=== PATIENT | female | born 1940 ===

== ENCOUNTER 2025-04-12 10:01 | Outpatient (AMB) | payer MEDICARE, SELFPAY ==
--- NOTE | 2025-04-12 10:09 | A.OFFVIS_ITS ---
Vital Signs 04/12/25 10:10 Height 5 ft 4 in Weight 91 lb BMI 15.6 BP 108/70 Blood Pressure Location Lt brachial Position Sitting Pulse 59 Pulse Source Pulse Oximeter Pulse Oximetry (%) 93 Oxygen Delivery Method Room Air Intake Visit Reasons: COPD/Bronchiectasis Intake Note: pt is here as a new patient, she states she gets hoarse after eating, has a esophagus issue going on. 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 Allergies warfarin [From Coumadin] Adverse Reaction (Mild, Verified 04/12/25 13:21) does not feel well on this medication Medication List - Last Reconciled 04/12/25 by Enma Munguia MD albuterol sulfate 90 mcg/actuation 2 puffs inhalation .prn atorvastatin (Lipitor) 20 mg PO BEDTIME calcium carbonate 500 mg PO BID carbidopa-levodopa 25-100 mg (Sinemet) 1 tab PO TID fluticasone propionate 50 mcg/actuation (Flonase Allergy Relief) 1 spray intranasal BID guaifenesin 200 mg PO Q4H PRN levothyroxine 100 mcg PO DAILY loratadine (Claritin) 10 mg PO DAILY metoprolol succinate ER 12.5 mg PO DAILY mirtazapine 7.5 mg PO BEDTIME pantoprazole 20 mg PO DAILY propafenone 150 mg PO BID Do you need a note to return to daycare/school/sports/work: No HPI HPI COPD/Bronchiectasis: Details: This 84 years old female, very pleasant, comes to the office today accompanied by her daughter, Current pulmonary evaluation and ongoing management. Previously she has been going to [facility] pulmonology group, She has primary care physician Dr. Hancock in [place]. This patient is of a thin build, , chronically under nourished , frail looking, who came in the wheelchair, . At home gets around with the walker Has history of dysphagia for the past many years, to the point that now she has difficulty in swallowing some solid foods, She also gets some choking. Episodes with liquids She tolerates semi solid type of food but only in small amounts. Still gets intermittent bouts of cough, as if she has hard time to expectorates. She is a good candidate for pulmonary aspirations, but denies having had any acute aspiration pneumonia requiring her to be hospitalized. The difficulty in swallowing is gradually getting worse. Her PCP and previous pulmonary providers have discussed with her about possible feeding tube, but she has declined. Mentally she stays very alert. Locomotion is impaired and it is partly because she has parkinsonism, as evidenced from the carbidopa-levodopa agent( Sinemet 25-100 ) that she takes b.i.d.. This patient does not know if she ever had pulmonary function test, but she probably does have some degree of chronic obstructive pulmonary disease. She has albuterol inhaler which she does not use much She has been prescribed nebulizer and advised to use 3% saline in the nebulizer Q 4-6 hours p.r.n. if she has an urge to clear mucus. She has tried to add albuterol to this but she claims that she it causes ta chycardia so she is not using it. Currently she does use guaifenesin 200 mg q.4 hours p.r.n. and also Claritin 10 mg once a day p.r.n. She was prescribed act Acapella vave for respiratory exercises, but she is not using it regularly. She had been on Symbicort 160-4.5 b.i.d. which is now changed to Advair, but she is not using it regularly. Main issue is dysphagia, poor nutrition, and fraility She has seen a parachute repairer in the past, her previous workup with barium swallow has shown difficulty in swallowing, with holding of the food in hypopharynx. And also she is known to have Schatzki ring . She has had dilatation at least at 1 time about a year ago. Has not gone back for follow-up. During our examination here in the office it was noted that she has a significant degree of Pectus Excavatum . She has not been told about this chest deformity before [facility] Medical History (Updated 04/12/25 @ 16:08 by Enma Munguia MD) Malnutrition Dysphagia Bronchiectasis COPD (chronic obstructive pulmonary disease) Restrictive lung disease Pectus excavatum Social History Patient Tobacco Use Status: Former Tobacco user Review of Systems Const All systems reviewed & are unremarkable except as noted in HPI and below Eyes Reports no additional complaints ENT Reports no additional complaints and Reports dysphagia (DYSPHAGIA, and possible micro aspirations.) Card Denies chest pain, Denies irregular heart rhythm and Reports dyspnea on exertion Resp Reports as per HPI and Reports dyspnea on exertion GI Reports dysphagia (DYSPHAGIA, and possible micro aspirations.) Reports no additional complaints Musc Reports abnormal gait (Has parkinsonism, and impaired gait.) and Reports muscle weakness Skin/Breast Reports system reviewed and no additional complaints, except as documented Neuro Reports abnormal gait (Has parkinsonism, and impaired gait.) Psych Reports no additional complaints Physical Exam Vital Signs: Last Vital Signs Pulse 59 04/12/25 10:10 BP 108/70 04/12/25 10:10 Pulse Ox 93 04/12/25 10:10 Oxygen Delivery Method Room Air 04/12/25 10:10 BMI result Body Mass Index 15.6 Patient is of a very thin build, chronically sick-looking, frail. Const General: comfortable, no acute distress, alert and awake Orientation/consciousness: patient oriented x3 HEENT Head: Yes normal to inspection General nose exam: No nasal polyps present and No nasal discharge present Face and sinus: Yes sinuses nontender Mouth: oropharynx normal Throat: Yes posterior oropharynx normal Eyes General: appearance normal, both eyes and all related structures Neck Neck: Yes normal visual inspection, Yes no lymphadenopathy, Yes trachea midline and Yes no JVD Thyroid: Thyroid normal Chest Chest palpation & inspection: abnormal inspection of the chest (Patient has a is severe degree of pectus excavatum,) and no tenderness Resp Other: This patient has severe chest deformity in the form of PECTUS EXCAVATUM Percussion note is resonant, breath sounds are diminished with prolonged expiratory phase. Has inspiratory crackles over the right. upper lobe anteriorly Has a few inspiratory wheezes in the upper part of the chest on both sides. Cardio Palpation: normal PMI Rate: regular rate Rhythm: regular rhythm Heart sounds: no gallops and no murmurs GI Palpation (GI): Soft to palpation, nontender, No hepatosplenomegaly present and no masses Auscultation: normal bowel sounds General: Yes no CVA tenderness Back/Spine/Pelvis Back: no CVA tenderness Thoracic/Lumbar Spine: thoracic and lumbar spine normal to inspection Skin General skin exam: no rashes or lesions noted Neuro General: patient oriented x3, No gait normal (Mild spasticity of the legs, with general weakness, patient in wheelchair) and no focal motor deficits Cranial nerves: Yes CN's II-XII intact bilaterally Extrem General: Yes normal to inspection, Yes no clubbing, cyanosis or edema and Yes no calf tenderness Psych Speech and movement: Normal speech and movement present Assessment & Plan Assessment & Plan (1) Pectus excavatum: Comment: This patient has very severe anterior chest deformity due to pectus excavatum. She has not been told about this before. When I pointed out to her and her daughter that he has this significant deformity which is causing restrictive lung disorder, they both expressed that they were not aware of this issue. I think her lung problem is definitely contributed by this deformity It seems to be congenital. Her shortness of breath is definitely contributed by this chest deformity. Code(s): Q67.6 - Pectus excavatum Category: Medical Plan: Mostly it was the Education of the patient and her daughter about this chest deformity. No specific treatment is going to be helpful at this stage. (2) Restrictive lung disease: Comment: We do not have the results of her previous pulmonary function test. But looking at the chest deformity, I a.m. sure that she has significant restrictive pulmonary disorder. Code(s): J98.4 - Other disorders of lung Category: Medical Plan: Advise that if she can she should try to do deep breathing exercises 3 times a day. (3) COPD (chronic obstructive pulmonary disease): Comment: Along with the restrictive component she has chronic obstructive airway disorder, which is probably mild. Code(s): J44.9 - Chronic obstructive pulmonary disease, unspecified Category: Medical Plan: She is advised to use albuterol HFA 2 puffs Q 6 hours p.r.n. if she has increased dyspnea or cough Also may use guaifenesin 200 mg q.4 hours p.r.n. for cough. (4) Bronchiectasis: Comment: She probably has had recurrent micro aspirations due to her dysphagia. The CT scan findings indicate that she has chronic bronchitis in the upper lobes and bronchiectasis in the right upper lobe. She is probably prone to have aspiration pneumonitis resulting in bronchial aggressive. Code(s): J47.9 - Bronchiectasis, uncomplicated Category: Medical Plan: Has to use all possible precautions to avoid pulmonary aspiration. For bronchiectases she should use hypertonic saline (3 % ) to male in the nebulizer at least twice a day and can use more often as needed. Guaifenesin 200 mg p.o. Q 4-6 hours p.r.n.. Continue to use Acapella valve 3 times a day, for respiratory exercises and mucus clearance. (5) Dysphagia: Comment: Patient has chronic difficulty in swallowing, she is not able to keep up with her nutrition. Her dysphagia is probably due to parkinsonism/ muscular discoordination. Previous barium swallow and other tests have shown that she has Schatzki ring . History of dilatation at lease once, after that she has had no regular follow- up. Code(s): R13.10 - Dysphagia, unspecified Category: Medical Plan: Advised that she should strict to pureed diet. Try to avoid aspiration. She is encouraged to follow-up with her parachute repairer regularly, and she may need intermittent upper endoscopy with dilatation. Of the lower end of the supplement We also discussed about Feeding tube She is definitely not prepared for that at this time (6) Malnutrition: Comment: Due to ongoing dysphagia and poor oral intake patient is cachectic, with thin build , and frail. Code(s): E46 - Unspecified protein-calorie malnutrition Category: Medical Plan: She he is encouraged to increase her intake of solid liquids or pureed type of time. Due to increased weight loss/malnutrition, she is encouraged to think seriously about having a feeding tube placed. I encouraged her to follow-up with the primary care physician closely and discuss about the feeding issues. Coding Level of Care Code New Pt Level 4 (72896) Diagnoses Pectus excavatum Q67.6 Restrictive lung disease J98.4 COPD (chronic obstructive pulmonary disease) J44.9 Bronchiectasis J47.9 Dysphagia R13.10 Malnutrition E46
[2025-04-12 10:10] VITALS: BP 108/70; PULSE 59; O2SAT 93; BMI 15.6
--- OUTSIDE RECORDS SUMMARY | 2025-04-12 11:14 | XMS_ITS | Encounter Summary ---
Author Organization [facility] Address [address] [place] [address] Care Team Providers Care Animal Sitter Name Role Phone Cheryl Champion MD Primary Care Provider Encounter Details Date Type Department Care Team (Late st Contact Info) Description 11/14/2024 Lab Requisition [facility] - Main Lab [address] [facility] [place] [address] Gary Tomlin MD [address] [place] [id number] Encounter for other general examination Social History Tobacco Use Types Packs/Day Years Used Date Smoking Tobacco: Former Smokeless Tobacco: Never Alcohol Use Standard Drinks/Week Comments Not Currently 0 (1 standard drink = 0.6 oz pur e alcohol) Comments Unknown Sex and Gender Information Value Date Recorded Sex Assigned at Not on file Legal Sex Female 3:59 PM EST Gender Identity Not on file Sexual Orientation Not on file documented as of this encounter Plan of Treatment Not on file documented as of this encounter Procedures Procedure Name Priority Date/Time Associated Diagnosis Comments COMPLETE BLOOD COUNT Routine 11/14/2024 4:51 AM EST Encounter for other general examination COMPREHENSIVE METABOLIC PANEL Routine 11/14/2024 4:51 AM EST Encounter for other general examination documented in this encounter Results * (ABNORMAL) Complete blood count (11/14/2024 4:51 AM EST) WBC 9.5 4.8 - 10.8 K/mcL LAB HEMETOLOGY METHOD 11/14/2024 11:41 AM [facility] RBC 4.50 3.80 - 4.80 M/mcL LAB HEMETOLOGY METHOD 11/14/2024 11:41 AM [facility] Hemoglobin 13.3 11.5 - 16.0 g/dL LAB HEMETOLOGY METHOD 11/14/2024 11:41 AM [facility] Hematocrit 41.5 35.0 - 47.0 % LAB HEMETOLOGY METHOD 11/14/2024 11:41 AM [facility] MCV 92.2 79.0 - 98.0 FL LAB HEMETOLOGY METHOD 11/14/2024 11:41 AM [facility] MCH 29.6 27.0 - 32.0 pcg LAB HEMETOLOGY METHOD 11/14/2024 11:41 AM [facility] MCHC 32.0 32.0 - 37.0 g/dL LAB HEMETOLOGY METHOD 11/14/2024 11:41 AM [facility] RDW 12.8 11.0 - 15.0 % LAB HEMETOLOGY METHOD 11/14/2024 11:41 AM [facility] Platelets 325 130 - 400 K/mcL LAB HEMETOLOGY METHOD 11/14/2024 11:41 AM [facility] MPV 11.9(H) 7.0 - 11.0 FL LAB HEMETOLOGY METHOD 11/14/2024 11:41 AM [facility] NRBC 0.0 <1.0 % LAB HEMETOLOGY METHOD 11/14/2024 11:41 AM [facility] NRBC Absolute 0.00 <0.10 K/mcL LAB HEMETOLOGY METHOD 11/14/2024 11:41 AM [facility] Blood Venous blood specimen / Unknown 11/14/2024 4:51 AM EST 11/14/2024 10:26 AM EST us Gary Tomlin MD LAB BLOOD ORDERABLES Final Res ult [facility] [address] [place] [address], [place] [phone] * (ABNORMAL) Comprehensive metabolic panel (11/14/2024 4:51 AM EST) Sodium 134 133 - 145 mmol/L LAB CHEMISTRY METHOD 11/14/2024 12:29 PM [facility] Potassium 4.5 3.5 - 5.5 mmol/L LAB CHEMISTRY METHOD 11/14/2024 12:29 PM [facility] Chloride 96 96 - 110 mmol/L LAB CHEMISTRY METHOD 11/14/2024 12:29 PM [facility] CO2 35(H) 21 - 32 mmol/L LAB CHEMISTRY METHOD 11/14/2024 12:29 PM [facility] Anion Gap 3 3 - 11 LAB CHEMISTRY METHOD 11/14/2024 12:29 PM [facility] Glucose 79 70 - 100 mg/dL LAB CHEMISTRY METHOD 11/14/2024 12:29 PM [facility] BUN 16 5 - 25 mg/dL LAB CHEMISTRY METHOD 11/14/2024 12:29 PM [facility] Creatinine 0.36(L) 0.50 - 1.10 mg/dL LAB CHEMISTRY METHOD 11/14/2024 12:29 PM [facility] eGFR 99 >=60 mL/min/1. 73m2 LAB CHEMISTRY METHOD 11/14/2024 12:29 PM [facility] Comment:Calculation based on the??Chronic Kidney Disease Epidemiology Collaboration (CKD-EPI) equation refit??without adjustment for race. BUN/Creatinine Ratio 44.4 LAB CHEMISTRY METHOD 11/14/2024 12:29 PM [facility] Calcium 8.6 8.5 - 10.5 mg/dL LAB CHEMISTRY METHOD 11/14/2024 12:29 PM [facility] AST (SGOT) 19 10 - 42 unit/L LAB CHEMISTRY METHOD 11/14/2024 12:29 PM [facility] ALT (SGPT) 25 10 - 60 unit/L LAB CHEMISTRY METHOD 11/14/2024 12:29 PM [facility] Alkaline Phosphatase 84 42 - 121 unit/L LAB CHEMISTRY METHOD 11/14/2024 12:29 PM [facility] Total Protein 5.5(L) 6.0 - 8.0 g/dL LAB CHEMISTRY METHOD 11/14/2024 12:29 PM [facility] Albumin 2.6(L) 3.2 - 5.0 g/dL LAB CHEMISTRY METHOD 11/14/2024 12:29 PM [facility] Total Bilirubin 1.6(H) 0.0 - 1.4 mg/dL LAB CHEMISTRY METHOD 11/14/2024 12:29 PM [facility] Blood Venous blood specimen / Unknown Venipuncture / Unknown 11/14/2024 4:51 AM EST 11/14/2024 10:26 AM EST us Gary Tomlin MD LAB BLOOD ORDERABLES Final Res ult [facility] [address] [place] [address], [place] [phone] documented in this encounter Visit Diagnoses Diagnosis Encounter for other general examination documented in this encounter Care Teams Animal Sitter Relationship Specialty Start Date End Date Cheryl Champion MD [address] [place] [address] PCP - General Internal Medicine 12/02/24 documented as of this encounter
== END 2025-04-12 10:50 | disposition home or self-care (01) ==
LOC: HO.HPS 10:02
PROVIDERS: PCP Internal Medicine; Referring Provider Internal Medicine; Visit Provider Internal Medicine
DX: Q67.6 Pectus excavatum (principal); J98.4 Other disorders of lung; J44.9 Chronic obstructive pulmonary disease, unspecified; J47.9 Bronchiectasis, uncomplicated; R13.10 Dysphagia, unspecified; E46 Unspecified protein-calorie malnutrition
CPT/HCPCS: 99204

== ENCOUNTER → 2025-04-12 10:01 | Outpatient (BNVA) | payer MEDICARE, SELFPAY | PROVIDERS: PCP Internal Medicine; Referring Provider Internal Medicine; Visit Provider Internal Medicine | DX: J44.9 Chronic obstructive pulmonary disease, unspecified (principal); J98.4 Other disorders of lung; J47.9 Bronchiectasis, uncomplicated; R13.10 Dysphagia, unspecified; E46 Unspecified protein-calorie malnutrition; Q67.6 Pectus excavatum | CPT/HCPCS: 99202 ==

== ENCOUNTER 2025-06-14 10:36 | Outpatient (AMB) | payer MEDICARE, SELFPAY ==
--- NOTE | 2025-06-14 11:10 | A.OFFVIS_ITS ---
Vital Signs 06/14/25 11:10 06/14/25 11:11 Height 5 ft 4 in 5 ft 4 in Weight 93 lb 11.143 oz BMI 16.1 BP 110/52 L Blood Pressure Location Lt brachial Position Sitting Pulse 55 Pulse Source Pulse Oximeter Pulse Oximetry (%) 90 L Oxygen Delivery Method Room Air Intake Visit Reasons: COPD/Bronchiectasis Intake Note: pt is here for follow up and states some coughing with mucous in the throat. Art Department Head Required: No Allergies warfarin (From Coumadin) Adverse Reaction (Mild, Verified 06/14/25 11:29) does not feel well on this medication Medication List - Last Reconciled 06/14/25 by Enma Munguia MD albuterol sulfate 90 mcg/actuation 2 puffs inhalation .prn atorvastatin (Lipitor) 20 mg PO BEDTIME carbidopa-levodopa 25-100 mg (Sinemet) 1 tab PO TID fluticasone propionate 50 mcg/actuation (Flonase Allergy Relief) 1 spray intranasal BID guaifenesin 200 mg PO Q4H PRN levothyroxine 100 mcg PO DAILY loratadine (Claritin) 10 mg PO DAILY lorazepam mg PO metoprolol succinate ER 12.5 mg PO DAILY mirtazapine 7.5 mg PO BEDTIME pantoprazole 20 mg PO DAILY propafenone 150 mg PO BID Do you need a note to return to daycare/school/sports/work: No HPI HPI COPD/Bronchiectasis: Details: This 84 years old very pleasant female, is a case of mild parkinsonism, which may be causing some discoordination of the pharyngeal muscles, and puts her at risk of dysphagia. However she has had no episodes of difficulty in swallowing. She is a case of severe pectus excavatum, and has some bronchiectasis in the lower lobes, that is with tendency to retain secretions. Since her last visit after full explanation of the abnormalities, she has coped with this situation much more easily. She does need to use the nebulizer with saline solution off and on, but does not like albuterol solution. She has had no persist and bouts of cough, or wheezing. [facility] Medical History Malnutrition Dysphagia Bronchiectasis COPD (chronic obstructive pulmonary disease) Restrictive lung disease Pectus excavatum Social History Patient Tobacco Use Status: Former Tobacco user Review of Systems Const All systems reviewed & are unremarkable except as noted in HPI and below Eyes Reports no additional complaints ENT Reports no additional complaints and Reports dysphagia (DYSPHAGIA, and possible micro aspirations.) Card Denies chest pain, Denies irregular heart rhythm and Reports dyspnea on exertion Resp Reports as per HPI and Reports dyspnea on exertion GI Reports dysphagia (DYSPHAGIA, and possible micro aspirations.) Reports no additional complaints Musc Reports abnormal gait (Has parkinsonism, and impaired gait.) and Reports muscle weakness Skin/Breast Reports system reviewed and no additional complaints, except as documented Neuro Reports abnormal gait (Has parkinsonism, and impaired gait.) Psych Reports no additional complaints Physical Exam Vital Signs: Last Vital Signs Pulse 55 06/14/25 11:11 BP 110/52 L 06/14/25 11:11 Pulse Ox 90 L 06/14/25 11:11 Oxygen Delivery Method Room Air 06/14/25 11:11 BMI result Body Mass Index 16.1 Patient is of a very thin build, chronically sick-looking, frail. Const General: comfortable, no acute distress, alert and awake Orientation/consciousness: patient oriented x3 HEENT Head: Yes normal to inspection General nose exam: No nasal polyps present and No nasal discharge present Face and sinus: Yes sinuses nontender Mouth: oropharynx normal Throat: Yes posterior oropharynx normal Eyes General: appearance normal, both eyes and all related structures Neck Neck: Yes normal visual inspection, Yes no lymphadenopathy, Yes trachea midline and Yes no JVD Thyroid: Thyroid normal Chest Chest palpation & inspection: abnormal inspection of the chest (Patient has a is severe degree of pectus excavatum,) and no tenderness Resp Other: This patient has severe chest deformity in the form of PECTUS EXCAVATUM Percussion note is resonant, breath sounds are diminished with prolonged expiratory phase. Has no wheezes or crepitations. Cardio Palpation: normal PMI Rate: regular rate Rhythm: regular rhythm Heart sounds: no gallops and no murmurs GI Palpation (GI): Soft to palpation, nontender, No hepatosplenomegaly present and no masses Auscultation: normal bowel sounds General: Yes no CVA tenderness Back/Spine/Pelvis Back: no CVA tenderness Thoracic/Lumbar Spine: thoracic and lumbar spine normal to inspection Skin General skin exam: no rashes or lesions noted Neuro General: patient oriented x3, No gait normal (Mild spasticity of the legs, with general weakness, patient in wheelchair) and no focal motor deficits Cranial nerves: Yes CN's II-XII intact bilaterally Extrem General: Yes normal to inspection, Yes no clubbing, cyanosis or edema and Yes no calf tenderness Psych Speech and movement: Normal speech and movement present Assessment & Plan Assessment & Plan (1) COPD (chronic obstructive pulmonary disease): Comment: Along with the restrictive component she has chronic obstructive airway disorder, which is probably mild. Does not need to use any bronchodilator inhalers. She does have albuterol solution at home but she does not tolerate it in the nebulizer. Code(s): J44.9 - Chronic obstructive pulmonary disease, unspecified Category: Medical Plan: Again advise that her COPD if at all is very mild and it is okay not to use the albuterol. May use guaifenesin 200 mg p.o. q.4 hours p.r.n. for any sense of mucus (2) Bronchiectasis: Comment: She probably has had recurrent micro aspirations due to her dysphagia. The CT scan findings indicate that she has chronic bronchitis in the upper lobes and bronchiectasis in the right upper lobe. She is probably prone to have aspiration pneumonitis resulting in bronchial aggressive. Code(s): J47.9 - Bronchiectasis, uncomplicated Category: Medical Plan: Patient just re-educated about this issue (3) Restrictive lung disease: Comment: We do not have the results of her previous pulmonary function test. But looking at the chest deformity, I a.m. sure that she has significant restrictive pulmonary disorder. Code(s): J98.4 - Other disorders of lung Category: Medical Plan: Patient is educated about this and advised to try doing deep breathing exercises as much as she can (4) Pectus excavatum: Comment: This patient has very severe anterior chest deformity due to pectus excavatum. She has not been told about this before. When I pointed out to her and her daughter that she has this significant deformity which is causing restrictive lung disorder, they both expressed that they were not aware of this issue. I think her lung problem is definitely contributed by this deformity It seems to be congenital. Her shortness of breath is definitely contributed by this chest deformity. Code(s): Q67.6 - Pectus excavatum Category: Medical Plan: Patient has now learned to live with that and is not bothered by increased shortness of breath (5) Dysphagia: Comment: Patient has chronic difficulty in swallowing, she is not able to keep up with her nutrition. Her dysphagia is probably due to parkinsonism/ muscular discoordination. Previous barium swallow and other tests have shown that she has Schatzki ring . History of dilatation at lease once, after that she has had no regular follow- up. Code(s): R13.10 - Dysphagia, unspecified Category: Medical Plan: Denies any significant problem at this time. She is careful when eating Coding Level of Care Code Est Pt Level 3 (24213) Diagnoses COPD (chronic obstructive pulmonary disease) J44.9 Bronchiectasis J47.9 Restrictive lung disease J98.4 Pectus excavatum Q67.6 Dysphagia R13.10
[2025-06-14 11:11] VITALS: BP 110/52; PULSE 55; O2SAT 90; BMI 16.1
--- OUTSIDE RECORDS SUMMARY | 2025-06-14 11:24 | XMS_ITS | Patient Health Record ---
Author Organization [facility] Address [address] [place] [address] Support Name Relationship Address Phone LIVIA JERRY Guarantor Unknown Reason For Referral No Information Medications Medication SIG (Take, Route, Frequency, Duration) Notes Start Date End Date Status Omeprazole 20MG 1 ORAL daily; Durati on: -[address] [facility] 10/14/2012 Active LORazepam 0.5MG 1/2-1 ORAL at bedtim e; Duration: -[address] [facility] 12/17/2011 Active Aspirin 325MG 1 ORAL daily; Durati on: -[address] [facility] 09/16/2011 Active Lipitor 20MG 1 ORAL daily; Durati on: -[address] [facility] 09/16/2011 Active Levoxyl 75MCG 1 ORAL DAILY; Durati on: -[address] [facility] 06/01/2012 Active PriLOSEC OTC 20MG 1 ORAL daily; Durati on: -[address] [facility] 03/30/2012 Active amLODIPine Besylate 2.5MG 1 ORAL daily; Duration: -[address] [facility] 09/16/2011 Active Ambien 10MG 1/2-1tab ORAL at bed time; Duration: -[address] [facility] 06/14/2012 Active Propafenone HCl 150MG 1 ORAL three times daily; Duration: -[address] [facility] 09/16/2011 Active Immunizations Vaccine Route Administration Date Status Comme nts Influenza, live, intranasal Intramuscular 06/14/2012 Pendi ng Influenza, live, intranasal Unknown 08/10/2012 Pending Problems Problem Type SNOMED Code ICD Code Onset Dates Problem Status W/U Status Risk Notes Problem Hypothyroidism (48464490) Unspecified hypothyroidism (244.9) Active confirmed Major Problem Atrial fibrillation (99938408) Atrial fibrillation (427.31) Active confirmed Major Problem Cardiac arrhythmia (865520862) Unspecified cardiac dysrhythmia (427.9) Active confirmed Diag Problem Esophageal reflux (069892818) Esophageal reflux (530.81) Active confirmed Major Problem Insomnia (491216228) Insomnia, unspecified (780.52) Active confirmed Diag Plan Of Treatment No Information Insurance Providers Payer Name Payer Address Payer Phone Subscriber Number Group Number Insured Name Patient Relationship to Insured Coverage Start Date Coverage End Date MEDICARE [address] DOTTIE SINGH [id number] LIVIA ANDREWS Self - patient is the insured MED[employer] [address] [place] [address] [id number] LIVIA ANDREWS Self - patient is the insured
--- OUTSIDE RECORDS SUMMARY | 2025-06-14 11:24 | XMS_ITS | Encounter Summary ---
Author Organization [facility] Address [address] [place] [address] Care Team Providers Care Licensed Practical Nurse Name Role Phone Cheryl Champion MD Primary Care Provider Encounter Details Date Type Department Care Team (Late st Contact Info) Description 11/14/[address] [facility] - Main Lab [address] [place] [id number] Gary Tomlin MD [address] [place] [id number] Encounter for other general examination Social History [...] as of this encounter Plan of Treatment Upcoming Encounters Date Type Department Care Team (Late Contact Info) Description 11/10/2025 10:20 AM EST Office Visit Gastroenterology - 299 [facility] [address] [phone] Estephanie Dominguez MD [address] [address] documented as of this encounter Procedures Procedure Name Priority Date/Time Associated Diagnosis Comments COMPLETE BLOOD COUNT Routine 11/14/2024 4:51 AM EST Encounter for other general examination COMPREHENSIVE METABOLIC PANEL Routine 11/14/2024 4:51 AM EST Encounter for other general examination documented in this encounter Results * (ABNORMAL) Complete blood count (11/14/2024 4:51 AM EST) [facility] Signature WBC 9.5 4.8 - 10.8 K/mcL LAB HEMETOLOGY METHOD 11/14/2024 11:41 AM [facility] RBC 4.50 3.80 - 4.80 M/mcL LAB HEMETOLOGY METHOD 11/14/2024 11:41 AM [facility] Hemoglobin 13.3 11.5 - 16.0 g/dL LAB HEMETOLOGY METHOD 11/14/2024 11:41 AM [facility] Hematocrit 41.5 35.0 - 47.0 % LAB HEMETOLOGY METHOD 11/14/2024 11:41 AM [facility] MCV 92.2 79.0 - 98.0 FL LAB HEMETOLOGY METHOD 11/14/2024 11:41 AM [facility] MCH 29.6 27.0 - 32.0 pcg LAB HEMETOLOGY METHOD 11/14/2024 11:41 AM [facility] MCHC 32.0 32.0 - 37.0 g/dL LAB HEMETOLOGY METHOD 11/14/2024 11:41 AM [facility] RDW 12.8 11.0 - 15.0 % LAB HEMETOLOGY METHOD 11/14/2024 11:41 AM [facility] Platelets 325 130 - 400 K/mcL LAB HEMETOLOGY METHOD 11/14/2024 11:41 AM [facility] MPV 11.9(H) 7.0 - 11.0 FL LAB HEMETOLOGY METHOD 11/14/2024 11:41 AM [facility] NRBC 0.0 <1.0 % LAB HEMETOLOGY METHOD 11/14/2024 11:41 AM EST [facility] NRBC Absolute 0.00 <0.10 K/mcL LAB HEMETOLOGY METHOD 11/14/2024 11:41 AM EST [facility] Blood Venous blood specimen / Unknown 11/14/2024 4:51 AM EST 11/14/2024 10:26 AM EST us Gary Tomlin MD LAB BLOOD ORDERABLES Final Res ult [facility] [address] [place] [address], [place] [phone] * (ABNORMAL) Comprehensive metabolic panel (11/14/2024 4:51 AM EST) Sodium 134 133 - 145 mmol/L LAB CHEMISTRY METHOD 11/14/2024 12:29 PM [facility] Potassium 4.5 3.5 - 5.5 mmol/L LAB CHEMISTRY METHOD 11/14/2024 12:29 PM [facility] Chloride 96 96 - 110 mmol/L LAB CHEMISTRY METHOD 11/14/2024 12:29 PM [facility] CO2 35(H) 21 - 32 mmol/L LAB CHEMISTRY METHOD 11/14/2024 12:29 PM [facility] Anion Gap 3 3 - 11 LAB CHEMISTRY METHOD 11/14/2024 12:29 PM [facility] Glucose 79 70 - 100 mg/dL LAB CHEMISTRY METHOD 11/14/2024 12:29 PM [facility] BUN 16 5 - 25 mg/dL LAB CHEMISTRY METHOD 11/14/2024 12:29 PM [facility] Creatinine 0.36(L) 0.50 - 1.10 mg/dL LAB CHEMISTRY METHOD 11/14/2024 12:29 PM [facility] eGFR 99 >=60 mL/min/1. 73m2 LAB CHEMISTRY METHOD 11/14/2024 12:29 PM [facility] Comment:Calculation based on the Chronic Kidney Disease Epidemiology Collaboration (CKD-EPI) equation refit without adjustment for race. BUN/Creatinine Ratio 44.4 LAB CHEMISTRY METHOD 11/14/2024 12:29 PM [facility] Calcium 8.6 8.5 - 10.5 mg/dL LAB CHEMISTRY METHOD 11/14/2024 12:29 PM [facility] AST (SGOT) 19 10 - 42 unit/L LAB CHEMISTRY METHOD 11/14/2024 12:29 PM [facility] ALT (SGPT) 25 10 - 60 unit/L LAB CHEMISTRY METHOD 11/14/2024 12:29 PM [facility] Alkaline Phosphatase 84 42 - 121 unit/L LAB CHEMISTRY METHOD 11/14/2024 12:29 PM [facility] Total Protein 5.5(L) 6.0 - 8.0 g/dL LAB CHEMISTRY METHOD 11/14/2024 12:29 PM [facility] Albumin 2.6(L) 3.2 - 5.0 g/dL LAB CHEMISTRY METHOD 11/14/2024 12:29 PM [facility] Total Bilirubin 1.6(H) 0.0 - 1.4 mg/dL LAB CHEMISTRY METHOD 11/14/2024 12:29 PM [facility] Blood Venous blood specimen / Unknown Venipuncture / Unknown 11/14/2024 4:51 AM EST 11/14/2024 10:26 AM EST us Gary Tomlin MD LAB BLOOD ORDERABLES Final Res ult [facility] [address] [place] [address], documented in this encounter Visit Diagnoses Diagnosis Encounter for other general examination documented in this encounter Care Teams Licensed Practical Nurse Relationship Specialty Start Date End Date Cheryl Champion MD [address] [place] [phone] PCP - General Internal Medicine 12/02/24 documented as of this encounter
== END 2025-06-14 11:29 | disposition home or self-care (01) ==
PROVIDERS: PCP Internal Medicine; Visit Provider Internal Medicine
DX: J44.9 Chronic obstructive pulmonary disease, unspecified (principal); J47.9 Bronchiectasis, uncomplicated; J98.4 Other disorders of lung; Q67.6 Pectus excavatum; R13.10 Dysphagia, unspecified
CPT/HCPCS: 99213

== ENCOUNTER → 2025-06-14 10:36 | Outpatient (BNVA) | payer MEDICARE, SELFPAY | PROVIDERS: PCP Internal Medicine; Visit Provider Internal Medicine | DX: J47.9 Bronchiectasis, uncomplicated (principal); J44.9 Chronic obstructive pulmonary disease, unspecified; J98.4 Other disorders of lung; Q67.6 Pectus excavatum; R13.10 Dysphagia, unspecified | CPT/HCPCS: 99212 ==